=== PATIENT | male | born 1995 | race Caucasian/White ===

== ENCOUNTER 2017-08-16 19:57 | Emergency (ER) | payer OTHER ==
[~2017-08-16] VITALS: Ht 172.7 cm; Wt 90.7 kg
[~2017-08-16 19:57] MED LIST: ADVIL100 M1; AMOX1TAB12 PO; BUTALB-ACETAMI1 EAC2; IBUPROFEN800 MG PO
[2017-08-16] MEDS ORDERED: TUSSI PRES-B L120 M1 PO (22:44)
[2017-08-16] MEDS ORDERED: ZITHROMAX TRI-500 MG PO (22:44)
== END 2017-08-16 22:53 | disposition home or self-care (01) ==
LOC: ER 19:57
DX: B34.9 Viral infection, unspecified (principal)